=== PATIENT | male | born 1970 | race African-American/Black ===

== ENCOUNTER 2017-08-26 13:15 | Emergency (ER) | payer BC, OTHER ==
[~2017-08-26] VITALS: Ht 165.1 cm; Wt 100.0 kg
[2017-08-26 13:19] VITALS: BP 187/98; PULSE 72; TEMP 98.7
[2017-08-26] MEDS ORDERED: GLUCOPHAGE1000 MG PO (13:31)
[2017-08-26] MEDS ORDERED: PRIL40 PO (13:33)
[2017-08-26] MEDS ORDERED: LONG ACTING INSULIN (13:33)
[2017-08-26] MEDS ORDERED: BLOOD PRESSURE (13:33)
[2017-08-26] MEDS ORDERED: LASIX 20MG TABL20 MG (13:34)
[2017-08-26] MEDS ORDERED: NEURONTIN600 MG/TAB PO (13:34)
== END 2017-08-26 14:30 | disposition home or self-care (01) ==
LOC: COL.ER 13:15
DX: K43.9 Ventral hernia without obstruction or gangrene (principal); M79.621 Pain in right upper arm; Z79.84 Long term (current) use of oral hypoglycemic drugs